=== PATIENT | female | born 1990 | race Caucasian/White ===

== ENCOUNTER 2019-11-25 09:00 | Outpatient (CLI) | payer MEDICAID ==
[~2019-11-25 09:00] MED LIST: CHLO10MO PO; CLIN300C17 PO; NO HOME MEDS
== END 2019-11-25 23:59 | disposition home or self-care (01) ==
LOC: CARD DIAG 09:00
PROVIDERS: ATTEND Obstetrics & Gynecology
DX: F11.20 Opioid dependence, uncomplicated (principal)
CPT/HCPCS: 93005